=== PATIENT | female | born 1940 | race Hispanic/Latino ===

== ENCOUNTER 2016-12-16 05:37 | Day surgery (SDC) | payer MEDICARE, OTHER ==
[2016-12-16 06:33] VITALS: BMI 32.6
--- NOTE | 2016-12-16 07:55 | CP.SDSHP ---
Same Day Surgery H & P - History Proposed Procedure: EGD Pre-Op Diagnosis: SEE NOTES - Previous Medical/Surgical History Cardiac: Hypertension Endocrine/Metabolic: Diabetes, Other Neuro: Backaches Misc: Other Pain: 4.Moderate Pain - Allergies Allergies: Allergies No Known Allergies Allergy (Verified 11/19/15 10:29) - Physical Exam General Appearance: N Vital Signs: Vital Signs 12/16/16 06:48 Temperature 97.3 F L Pulse Rate 68 Respiratory 16 Rate Blood Pressure 173/69 H O2 Sat by Pulse 97 Oximetry Mental Status: Alert & Oriented x3 Neuro: Other Heart: Other Lungs: WNL GI: WNL - {Optional Preform as Required} Breast: WNL Abdomen: Other Rectal: Other Integument: WNL : WNL Ortho: Other ENT: WNL - Impression Pt. Evaluated Today:Candidate for Anesthesia & Procedure: Yes - Date & Time Time: 07:55 Short Stay Discharge - Short Stay Discharge Admitting Diagnosis/Reason for Visit: DYSPEPSIA Disposition: HOME/ ROUTINE
[2016-12-16] MEDS ORDERED: Pantoprazole 40 mg EC Tab PO STA (07:56)
[2016-12-16] MEDS ORDERED: Belladonna-Phenobarbital PO STA (07:56)
[2016-12-16] MEDS ORDERED: Lactated Ringer's 500 ML IV ONE (08:04)
[2016-12-16 08:22] VITALS: TEMP 97.8
[2016-12-16 10:10] VITALS: RESP 19; O2SAT 99
[2016-12-16 10:35] VITALS: BP 133/58; PULSE 64
== END 2016-12-16 09:16 | disposition home or self-care (01) ==
LOC: C.ENDO 05:37
PROVIDERS: ATTEND Specialist
DX: K25.9 Gastric ulcer, unspecified as acute or chronic, without hemorrhage or perforation (principal); K29.60 Other gastritis without bleeding; K29.80 Duodenitis without bleeding; K44.9 Diaphragmatic hernia without obstruction or gangrene
CPT/HCPCS: 43239; 82948; 88305; 88342; J2765; J7120